=== PATIENT | male | born 1965 | race Caucasian/White ===

== ENCOUNTER → 2016-08-29 | Outpatient (CLI) | payer OTHER ==
--- NOTE | ~2016-08-29 | XA198 ---
[facility] A Service of [facility] & [facility] RADIOLOGY TEXT RESULTS PATIENT: TRENT MEANS JR [facility] : [birth year] UNIT #: [id number] AGE: [address]: ALMA JOHNSON APRN SEX: M ORDER DR: [id number] [facility] [address] [place], [place] [address] [id number] O MR#: [id number] Acc #: [id number] NAME: TRENT MEANS JR : 1965 SEX: M STUDY DATE/TIME: 08/29/2016 10:19 UNIT: [facility] ROOM: STUDY DESCRIPTION: XA Spinal Puncture Attending Physician: Alma Johnson Aprn Referring Physician: Alma Johnson Aprn Ordering Physician: Alma Johnson Aprn Primary Care Physician: Morena Fernandes M.D. 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 Large-volume lumbar puncture requested. Fluoro time 0.4 minutes. 2 fluoroscopic images were taken. The risks, benefits, and alternatives of the procedure were discussed with the patient and informed consent was obtained. In the procedure room, a time out was performed confirming correct patient and procedure. All elements of maximum sterile-barrier technique utilized according to guidelines appropriate for the procedure. FINDINGS The skin overlying the lower lumbar spine was prepped and draped in the usual sterile fashion. 1% lidocaine utilized to anesthetize skin and underlying subcutaneous tissues. Next under fluoroscopic guidance, a 20-gauge needle was advanced through the subarachnoid space at the L4-L5 level. There is return of clear CSF. Opening pressure was 22 cm water. Approximately 15 mL of CSF was removed and discarded. Closing pressure was 16 cm water. The needle was removed and a sterile dressing was applied. No immediate complications. IMPRESSION Technically successful fluoroscopically-guided lumbar puncture. Dictated by... Stone Vences M.D. THIS IS AN ELECTRONICALLY VERIFIED REPORT Stone Vences M.D. at 08/30/2016 7:45 AM [facility] A Service of [facility] & [facility] RADIOLOGY TEXT RESULTS PATIENT: TRENT MEANS JR LOCATION: [facility] #: [id number] : [birth year] UNIT #: [id number] AGE: [address]: ALMA JOHNSON APRN SEX: M ORDER DR: Katerina TD: 08/29/2016 22:05 JOB #: [id number] MEDICAL IMAGING REPORT Page 1 of 1 COPY
[2016-08-29 09:40] LABS: HEMATOCRIT 40.6 % (38.0-50.0); HEMOGLOBIN 13.4 gm/dL (13.0-16.0); MEAN CELL VOLUME 84.7 FL (83-96); MEAN CORPUSCULAR HEMOGLOBIN 27.9 PG (28-34); MEAN PLATELET VOLUME 8.7 FL (6.5-11.5); RED BLOOD COUNT 4.8 X10e (3.90-5.60); RED CELL DISTRIBUTION WIDTH 14.2 % (11.0-15.5); WHITE BLOOD COUNT 9.6 X10e3 (4.0-10.5)
[2016-08-29 09:55] LABS: INR 0.9; PARTIAL THROMBOPLASTIN TIME 29.8 SECONDS (23.5-31.3); PROTHROMBIN TIME (PATIENT) 9.6 SECONDS (9.6-11.5)
== END | disposition home or self-care (01) ==
LOC: CIVR 08-28 09:00
PROVIDERS: Nurse Practitioner Family
PROC: 009U3ZZ Drainage of Spinal Canal, Percutaneous Approach (ICD-10-PCS; principal; 2016-08-29)
DX: G93.2 Benign intracranial hypertension (principal)
CPT/HCPCS: 36415; 77003; 85027; 85610; 85730